=== PATIENT | male | born 1975 | race Caucasian/White ===

== ENCOUNTER 2017-11-26 22:07 | Emergency (ER) | payer SELFPAY ==
[~2017-11-26] VITALS: Ht 167.6 cm; Wt 75.0 kg
[2017-11-26 22:11] VITALS: BP 110/67
== END 2017-11-27 01:50 | disposition left against medical advice (07) ==
LOC: ER 22:12
DX: M54.9 Dorsalgia, unspecified (principal); Z53.21 Procedure and treatment not carried out due to patient leaving prior to being seen by health care provider